=== PATIENT | male | born 1980 | race Caucasian/White ===

== ENCOUNTER 2017-07-06 13:29 | Inpatient (IN) | payer OTHER ==
[~2017-07-06] VITALS: Ht 190.5 cm; Wt 72.6 kg
[2017-07-06] MEDS ORDERED: CLINDAMYCIN 600 MG in IV D5W 100 ML IV ONE (14:30)
[2017-07-06] MEDS ORDERED: IV NS 0.9% 1,000 ML BAG IV ONE (14:30)
[2017-07-06] MEDS ORDERED: VANCOMYCIN 1 GM in IV D5W 250 ML IV ONE (14:30)
[2017-07-06] MEDS ORDERED: AZTREONAM 2 G in IV NS 0.9% 100 ML IV ONE (14:30)
[2017-07-06 15:03] LABS: BASOPHILS # (AUTO) 0.1 /CMM (0.0-0.2); BASOPHILS % (AUTO) 1.1 % (0.0-2.0); EOSINOPHILS # (AUTO) 0.3 /CMM (0.0-0.7); EOSINOPHILS % (AUTO) 4.1 % (0.0-6.0); HEMATOCRIT 37 % (39-51); LYMPHOCYTES # (AUTO) 1.5 /CMM (0.8-4.8); LYMPHOCYTES % (AUTO) 22.1 % (20.0-44.0); MEAN CORPUSCULAR HEMOGLOBIN 29 PG (26.0-33.0); MEAN CORPUSCULAR HGB CONC 35 g/dl (31.0-36.0); MEAN CORPUSCULAR VOLUME 82 fL (80-96); MONOCYTES # (AUTO) 0.6 /CMM (0.1-1.30); MONOCYTES % (AUTO) 8.9 % (2.0-12.0); NEUTROPHILS # (AUTO) 4.4 /CMM (1.8-8.9); NEUTROPHILS % (AUTO) 63.8 % (43.0-81.0); PLATELET COUNT (AUTO) 217 /CMM (150-450); RDW COEFFICIENT OF VARIATION 11.6 (11.5-15.0); RED BLOOD CELL COUNT(AUTO) 4.52 MIL/uL (4.5-6.0); WHITE BLOOD COUNT (AUTO) 6.9 K/uL (4.3-11.0)
[2017-07-06 15:05] LABS: CALCIUM, SERUM 9.2 mg/dL (8.5-10.1); CREATININE 1.3 mg/dL (0.6-1.3); POTASSIUM 4.4 mmol/L (3.5-5.1)
[2017-07-06 15:10] LABS: INR 0.89 (0.87-1.13); PROTHROMBIN TIME 9.3 SECS (9.5-12.7)
--- NOTE | 2017-07-06 16:00 | NUR ---
Pt came to ER from clinic next door. Pt c/o left great toe pain and discoloration, along with abrassion. Pt denies CP, SOB, dizziness, n/v, no other complaints, no distress noted.
--- NOTE | 2017-07-06 17:18 | NUR ---
M/S 203 Addendum: 07/06/17 at 1745 by MARIA ALEJANDRA ROOM CHANGE
[2017-07-06] MEDS ORDERED: ONDANSETRON HCL/PF 4 MG/2 ML VIAL IV STA (17:39)
[2017-07-06] MEDS ORDERED: HYDROMORPHONE 1 MG/1 ML DISP.SYRIN IV STA (17:39)
[2017-07-06] MEDS ORDERED: ONDANSETRON HCL/PF 4 MG/2 ML VIAL ONE ×2 (17:40→21:57)
[2017-07-06] MEDS ORDERED: HYDROMORPHONE INJ 2 MG/ML DISP.SYRIN ONE (17:42)
--- NOTE | 2017-07-06 17:45 | NUR ---
M/S 209-2
--- NOTE | 2017-07-06 19:15 | NUR ---
called report to Monique.
--- NOTE | 2017-07-06 19:45 | NUR ---
PT TRANSFERED VIA [facility]
[2017-07-06 19:50] VITALS: BP 169/111
--- NOTE | 2017-07-06 19:50 | NUR ---
SHERYL RECEIVED FROM ER 37 Y/O WITH CC OF BLEEDING LEFT GREAT TOE STARTED THIS MORNING. NO ACTIVE BLEEDING OF THIS TIME, CAME WITH [facility] IVPB INFUSING. A/O X4, ABLE TO PROVIDE ADMITTING INFO. ABLE TO TOLERATE PAIN ON LEFT GREAT TOE. STATED DID NOT EAT WHOLE DAY TODAY AND STARVING. HAS OWN ACCUCHECK MACHINE AND CHECKED HIS BLOOD SUGAR AND WAS 179. GAVE SELF OWN LANTUS INSULIN. PROVIDED FOOD, ATE WELL. WILL CALL DR. ONTIVEROS FOR ORDERS. ORIENTED TO ROOM FACILITIES, SAFETY PRECAUTIONS EMPHASIZED WELL UNDERSTOOD. PLAN OF CARE AND MEDICATION REGIMEN EXPLAINED TO PATIENT. WELL UNDERSTOOD.
--- NOTE | 2017-07-06 21:00 | NUR ---
MSROXANE RECEIVED ORDERS FROM DR. ONTIVEROS, CARRIED OUT. REQUESTED TO TAKE HIS DAILY MEDS TONIGHT, STATED LAST DOSE WAS YESTERDAY.
[2017-07-06] MEDS ORDERED: DEXTROSE 50%-WATER 50 ML DISP.SYRIN IV PRN (21:30)
[2017-07-06] MEDS ORDERED: ZOLPIDEM TARTRATE 5 MG TABLET PO PRN (21:30)
[2017-07-06] MEDS ORDERED: INSULIN REGULAR, HUMAN 100 UNIT/ML 3 ML VIAL SQ PRN (21:30)
[2017-07-06] MEDS ORDERED: HYDROCODONE/APAP 5/325MG 1 EACH TABLET PO PRN (21:30)
[2017-07-06] MEDS ORDERED: ACETAMINOPHEN 325 MG TABLET PO PRN (21:30)
[2017-07-06] MEDS ORDERED: ONDANSETRON HCL/PF 4 MG/2 ML VIAL IV PRN (21:30)
[2017-07-06] MEDS ORDERED: HYDROCODONE/APAP 5/325MG 1 EACH TABLET ONE (21:56)
[2017-07-06] MEDS ORDERED: ATORVASTATIN 10 MG TABLET PO SCH (22:00)
[2017-07-06] MEDS: HYDROCODONE/APAP 5/325MG 1 EACH TABLET PO PRN (22:02)
[2017-07-06] MEDS ORDERED: BUPROPION XL 150 MG TAB.ER.24 PO ONE (22:11)
[2017-07-06] MEDS ORDERED: LISINOPRIL (10MG) 10 MG TABLET ONE (22:12)
[2017-07-06] MEDS ORDERED: ATORVASTATIN 10 MG TABLET ONE (22:13)
[2017-07-06] MEDS ORDERED: BUPROPION XL 150 MG TAB.ER.24 PO SCH (22:30)
[2017-07-06] MEDS ORDERED: LISINOPRIL (10MG) 10 MG TABLET PO ONE (22:30)
--- NOTE | 2017-07-06 23:00 | NUR ---
MSRN DUE MEDS ADMINISTERED, ALL NEEDS ATTENDED.
[2017-07-07] MEDS ORDERED: LISI10TA5 PO (02:52)
[2017-07-07] MEDS ORDERED: INSU100C10 SQ (02:52)
[2017-07-07] MEDS ORDERED: INSU100I4 SQ (02:52)
[2017-07-07] MEDS ORDERED: BUPR-96 PO (02:52)
[2017-07-07] MEDS ORDERED: ACET-868 PO (02:52)
[2017-07-07] MEDS ORDERED: INSU100V7 SQ (02:52)
--- NOTE | 2017-07-07 03:01 | NUR ---
SHERYL SLEPT WELL, CLOSELY WATCHED.
--- NOTE | 2017-07-07 07:00 | NUR ---
SHERYL BS WS 242, REFUSED TO TAKE INSULIN COVERAGE FOR NOW, WANTED TO SPEAK WITH DR. ONTIVEROS REGARDING HIS HUMOLOG COVERAGE. WANTED TO CHECK WHAT BREAKFAST HE WILL HAVE AND STATED WILL LET STAFF KNOW HOW MUCH INSULIN HUMOLOG HE WILL ADMINISTER TO HIMSELF.
[2017-07-07] MEDS ORDERED: FEE PK DOSING 1 MIN EA MC ONE (07:19)
[2017-07-07] MEDS ORDERED: *INSULIN REGULAR(HUMULIN R)HUM 100 UNIT/ML VIAL SQ PRN (07:30)
[2017-07-07] MEDS ORDERED: BLOOD SUGAR DIAGNOSTIC 1 EACH STRIP VI SCH (07:30)
[2017-07-07] MEDS: HYDROCODONE/APAP 5/325MG 1 EACH TABLET PO PRN (07:45)
[2017-07-07 08:00] VITALS: BP 160/106
[2017-07-07] MEDS ORDERED: VANCOMYCIN 1 GM in IV D5W 250 ML IV SCH (08:00)
[2017-07-07 08:23] LABS: BASOPHILS # (AUTO) 0.1 /CMM (0.0-0.2); BASOPHILS % (AUTO) 1.4 % (0.0-2.0); EOSINOPHILS # (AUTO) 0.4 /CMM (0.0-0.7); EOSINOPHILS % (AUTO) 5.5 % (0.0-6.0); HEMATOCRIT 35 % (39-51); HEMOGLOBIN 12.1 g/dL (13.5-17.5); LYMPHOCYTES # (AUTO) 2.1 /CMM (0.8-4.8); LYMPHOCYTES % (AUTO) 32.7 % (20.0-44.0); MEAN CORPUSCULAR HEMOGLOBIN 29 PG (26.0-33.0); MEAN CORPUSCULAR HGB CONC 35 g/dl (31.0-36.0); MEAN CORPUSCULAR VOLUME 84 fL (80-96); MONOCYTES # (AUTO) 0.6 /CMM (0.1-1.30); MONOCYTES % (AUTO) 9.4 % (2.0-12.0); NEUTROPHILS # (AUTO) 3.3 /CMM (1.8-8.9); PLATELET COUNT (AUTO) 185 /CMM (150-450); RDW COEFFICIENT OF VARIATION 12.5 (11.5-15.0); RED BLOOD CELL COUNT(AUTO) 4.11 MIL/uL (4.5-6.0); WHITE BLOOD COUNT (AUTO) 6.4 K/uL (4.3-11.0)
[2017-07-07 08:28] VITALS: BP 160/100
[2017-07-07 08:48] LABS: CALCIUM, SERUM 8.8 mg/dL (8.5-10.1); CREATININE 1.1 mg/dL (0.6-1.3); POTASSIUM 3.9 mmol/L (3.5-5.1)
[2017-07-07] MEDS ORDERED: LISINOPRIL (10MG) 10 MG TABLET PO SCH (09:00)
[2017-07-07] MEDS ORDERED: MUPIROCIN OINT 2% 22 GM TUBE TP SCH (09:00)
[2017-07-07] MEDS ORDERED: DAKINS QUARTER STRENGTH (0.125%) 480 ML BOTTLE TOP SCH (09:00)
[2017-07-07] MEDS ORDERED: LEVOFLOXACIN 500 MG /D5W 100ML 500 MG in PREMIX 1 EA IV SCH (09:00)
[2017-07-07] MEDS ORDERED: BUPROPION XL 150 MG TAB.ER.24 PO SCH (09:00)
[2017-07-07] MEDS ORDERED: INSULIN DETEMIR 100 UNIT/ML CARTRIDGE SQ SCH (09:30)
--- NOTE | 2017-07-07 11:41 | NUR ---
PT DISCHARGED TO HOME. ALL BELONGINGS ACCOUNTED FOR AND PRESCRIPTIONS GIVEN TO THE PATIENT. FOLLOW UP INFO FOR DR BERRIOS GIVEN AND PATIENT STATES UNDERSTANDING FOR FOLLOW UP. IV REMOVED. PATIENT LEFT IN STABLE CONDITION, VIA PRIVATE CAR TO HOME. NO SOB OR DISTRESS.
== END 2017-07-07 11:30 | disposition home or self-care (01) | DRG 384 ==
LOC: ER 13:33 → TRANSITION 16:57 → MEDSG2 19:04
PROVIDERS: ADMIT Internal Medicine; ATTEND Internal Medicine
DX: S90.112A Contusion of left great toe without damage to nail, initial encounter (principal); E10.42 Type 1 diabetes mellitus with diabetic polyneuropathy; M12.50 Traumatic arthropathy, unspecified site; I10 Essential (primary) hypertension; F17.200 Nicotine dependence, unspecified, uncomplicated; F31.9 Bipolar disorder, unspecified; Z88.1 Allergy status to other antibiotic agents; Z98.890 Other specified postprocedural states; Z79.899 Other long term (current) drug therapy; Z82.49 Family history of ischemic heart disease and other diseases of the circulatory system; Z83.3 Family history of diabetes mellitus; Z79.4 Long term (current) use of insulin; X58.XXXA Exposure to other specified factors, initial encounter; Y92.9 Unspecified place or not applicable
CPT/HCPCS: 36415; 71045-TC; 73630-TC; 80048-TC; 80061-TC; 82962-TC; 83605-TC; 84550-TC; 85025-TC; 85652-TC; 85730-TC; 86140-TC; 87040-TC; 87070-TC; 87081-TC; A4216; A4606; A6403; J1170; J1815; J1956; J2405; J3370; J3490; J7030; J7040; J7050; J7060; Z7610